=== PATIENT | male | born 1975 | race Caucasian/White ===

== ENCOUNTER 2021-07-04 12:39 | Inpatient (IN) | payer MEDICARE, OTHER ==
[~2021-07-04] VITALS: Ht 175.3 cm; Wt 83.7 kg
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
[2021-07-04] MEDS ORDERED: JANUVIA100 MG PO (13:02)
[2021-07-04] MEDS ORDERED: METFORMIN HCL500 M1 PO (13:02)
[2021-07-04] MEDS ORDERED: LISINOPRIL10 MG PO (13:02)
[2021-07-04] MEDS ORDERED: FENOFIBRATE145 MG PO (13:03)
[2021-07-04] MEDS ORDERED: ROSUVASTATIN CA40 MG PO (13:03)
--- NOTE | 2021-07-04 19:05 | NUR ---
PATIENT ARRIVED VIA STRETCHER FROM ER INTO ROOM #117. SURGICAL WIPE DOWN DONE BY THIS RN. VACCINE/VS/WEIGHT/VALUABLES/QUICK ADMIT/VASCULAR ACCESS CHARTING DONE BY THIS RN. LR HANGING ON EXTENSION TUBING TO GO TO OR. REPORT GIVEN TO EVELYN BECK FOR SHIFT CHANGE. PATIENT'S MOTHER IN ROOM TO GIVE PATIENT HX. CALL LIGHT IN REACH.
--- NOTE | 2021-07-04 19:30 | NUR ---
REPORT RECEIVED FROM DAY SHIFT RN. PT ALERT AND ORIENTED. DENIES PAIN OR NAUSEA. MD AND ANESTHESIA AT BED SIDE TO DISCUSS PROCEDURE. SURGICAL CONSENT SIGNED BY PT AND MOTHER. ADMISSION ASSESSMENT COMPLETE. PT DENIES QUESTIONS OR CONCERNS. WHITE BOARD UPDATED. CALL LIGHT IN REACH.
--- NOTE | 2021-07-04 20:00 | NUR ---
PT OFF FLOOR WITH PACU NURSE VIA BED TO OR.
--- NOTE | 2021-07-05 00:47 | NUR ---
07/05/21 0047 Samreen Mccray 2304 PT ARRIVED IN PACU NON RESPONSIVE TO NOXIOUS STIMULI WITH OPA IN PLACE. 2310 BLOOD SUGAR 92. ANESTHESIA AWARE WITH NO NEW ORDERS. 2316 PT REACTIVE. OPA REMOVED. 2330 PT TALKING AND ASKING MANY QUESTIONS. ALL QUESTIONS ANSWERED MULTIPLE TIMES. 2345 DR AT BEDSIDE TALKING WITH PT. G-TUBE ATTACHED TO RUTHERFORD BAG PER DR ORDERS. 0000 C/O ABD PAIN. UNABLE TO RATE. FENTANYL 50MCG GIVEN IVP. 0010 PT STATES "I FEEL ALOT BETTER." DECLINED MORE PAIN MEDICATION AT THIS TIME. 0020 TO ROOM 117. REPORT GIVEN TO RN. BED PLUGGED. 0025 PT C/O ABD PAIN. 0029 FENTANYL 50MCG GIVEN IVP FOR ABD PAIN. PT UNABLE TO RATE AT THIS TIME. 0040 PT SLEEPY. STATES "MY PAIN IS BETTER." ENCOURAGED PT TO GET SOME REST. PT'S RN AT BEDSIDE.
--- NOTE | 2021-07-05 00:48 | NUR ---
PT TO FLOOR FROM PACU AT 0020. REPORT RECEIVED FROM PACU NURSE. PT AWAKE AND REPORTS FEELING DISORIENTED FROM ANESTHESIA. ORIENTATION PROVIDED. BED ALARM PLACED. POST OP VS WNL. IVF INFUSING WNL. ASSESSMENT COMPLETE. MIDLINE ABD DRESSING INTACT WITH SCANT AMOUNT SEROSANG DRAINAGE. G-TUBE LEFT UPPER ABD TO GRAVITY. NO DRAINAGE NOTED. SAHARA TO RLQ WITH SEROSANG DRAINAGE. ABD MODERATELY DISTENDED AND FIRM. BOWEL TONES INACTIVE AT THIS TIME. RUTHERFORD PATENT WITH YELLOW URINE. PT DENIES NAUSEA. REPORTS ABD PAIN. PACU NURSE ADMINISTERED PRN FOR PAIN. SCD'S IN PLACE. WARM BLANKET PROVIDED. CALL LIGHT IN REACH.
--- NOTE | 2021-07-05 01:37 | NUR ---
PT RESTING WITH EYES CLOSED UPON ENTERING ROOM. AWAKES EASILY. POST OP VS COMPLETE. WNL. PT DENIES PAIN OR NAUSEA. NO FURTHER NEEDS.
--- NOTE | 2021-07-05 03:23 | NUR ---
CALL LIGHT ANSWERED. 2 WARM BLANKET PROVIDED. ROOM TEMP ADJUSTED UP TO 76.
--- NOTE | 2021-07-05 03:48 | NUR ---
POST OP VS COMPLETE. PT DENIES PAIN OR NAUSEA. ICE WATER PROVIDED. NO FURTHER NEEDS. CALL LIGHT IN REACH.
--- NOTE | 2021-07-05 05:40 | NUR ---
MD NOTIFIED OF CONSULT VIA TELEPHONE, SURGEON HAS NOTIFIED MD.
--- NOTE | 2021-07-05 05:53 | NUR ---
CALL LIGHT ANSWERED. PT REPORTS 12/05 ABD PAIN. PRN FOR PAIN ADMIN PER EMAR. IV ABX INFUSING WNL. PT DENIES NAUSEA. G-TUBE AND CLARY DRAIN EMPTIED AND RECORDED. RUTHERFORD PATENT WITH QS CONCENTRATED URINE. VS AND I&O COMPLETE. PT TEMP ELEVATED. EXTRA BLANKETS REMOVED. ENCOURAGED PT TO COUGH AND DEEP BREATHE. ABD SPLINT PROVIDED. JELLO AND FRESH WATER PROVIDED. NO FURTHER NEEDS. CALL LIGHT IN REACH.
--- NOTE | 2021-07-05 06:30 | NUR ---
CALL LIGHT ANSWERED. PT REPORTS ABD PAIN 12/05. PRN FOR PAIN ADMIN PER EMAR. IV ABX INFUSING WNL. ASSISTED TO REPOSITION IN BED. NO FURTHER NEEDS. CALL LIGHT IN REACH.
--- NOTE | 2021-07-05 07:30 | NUR ---
SHIFT REPORT RECEIVED BY THIS RN FROM EVELYN BECK. EVELYN WHIPPLE SHADOWING THIS RN FOR THE DAY. PATIENT RESTING QUIETLY IN KERLINE-FOWLERS POSITION IN BED, EYES CLOSED, RESPIRATIONS ARE REGULAR AND EVEN, CALL LIGHT IS IN REACH. NO CURRENT CARE NEEDS AT THIS TIME.
--- NOTE | 2021-07-05 09:45 | NUR ---
THIS RN IN TO SEE PATIENT. PATIENT DENIES PAIN AND NAUSEA AT THIS TIME. MINIMAL DRAINAGE FROM SAHARA. 150MLS GREEN AND SLUFF OUTPUT FROM G-TUBE. RUTHERFORD DRAINING QS FOR THE LAST 4HRS PER SURGEON PROTOCOL. IV INFUSING WNL AND BOTH IV'S FLUSH WELL. SCD'S ON AND RUNNING. BOWEL TONES HYPOACTIVE, ABD FIRM AND TENDER. VS STABLE ON ROOM AIR AT THIS ITME. PATIENT GIVEN 3 JELLOS AND A NEW GLASS OF ICE WATER. PATIENT DENIES ANY OTHER NEEDS AT THIS TIME. CALL LIHT IN REACH AND BED ALARM IS ON.
--- NOTE | 2021-07-05 12:30 | NUR ---
PATIENT CALLED AND SAYS HE WAS HAVING 10/10 ABD PAIN. PATIENT GIVEN 3MG SIVP MORPHINE AFTER 8MG SIVP ZOFRAN TO PREVENT NAUSEA FROM MORPHINE. PATIENT'S PAIN IS GETTING BETTER HE SAYS AND IS NOT NAUSEATED. ABD DRESSING REMAINS IN PLACE WITH NO ADDITIONAL DRAINAGE AND BOWEL TONES ARE HYPOACTIVE. NEW BAG OF LR HUNG AND RATE DECREASED TO 100MLS/HR. PATIENT GIVEN 4 DIFFERENT CLEAR BEVERAGES HE ASKED FOR AND BOTH WATER GLASSES REFILLED WITH ICE WATER. CALL LIGHT IS IN REACH AND PATIENT HS NO OTHER NEEDS AT THIS TIME. CALL LIGHT IN REACH AND BED ALARM IS ON.
--- NOTE | 2021-07-05 13:20 | NUR ---
THIS RN CHECKED IN WITH PATIENT AND HIS PAIN IS GONE AND HE HAS NO NAUSEA. PATIENT DENIES ANY OTHER CARE NEEDS AT THIS TIME. CALL LIGHT IS IN REACH.
--- NOTE | 2021-07-05 14:02 | NUR ---
UNABLE TO VISIT PT AT THIS TIME DUE TO PRECAUTIONS. WILL FOLLOW
--- NOTE | 2021-07-05 14:46 | NUR ---
PATIENT STILL DENIES PAIN AND NAUSEA. G-TUBE PUT OUT 800MLS OF FLUID AND PATIENT TOOK IN 850MLS PO. G-TUBE WORKING WELL. AFTERNOON ASSESSMENT COMPLETE. PATIENT DENIES SOB. MIDLEN ABD DRESSING REMAINS UNCHANGED, ABD STILL DISTENDED AND FIRM, WITH HYPOACTIVE BOWEL TONES. CALL LIGHT IS IN REACHA AND BED ALARM IS ON.
--- NOTE | 2021-07-05 15:00 | NUR ---
Spoke with pt and he states he lives in an apartment without steps. He lives in an apartment complex which mother manages. Pt states he has been disabled since 1997 with a TBI. Mother assist with household tasks, shopping, and transport. Pt is aware he has covid, does not believe he has symtoms, but nancy have a cough. Pt plans on dc to home when cleared medically. 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 He denies needs.
--- NOTE | 2021-07-05 16:02 | NUR ---
MED REC COMPLETE
--- NOTE | 2021-07-05 16:17 | NUR ---
PATIENT CALLED HAVING 8/10 ABD PAIN. 4MG SIVP MORPHINE GIVEN WELL IV TORADOL SIVP. PATIENT DENIES ANY OTHER CARE NEEDS AND DENIES NAUSEA. ICE WARTER GLASSES REFILLED. CALL LIGHT IN REACH AND BED ALARM IS ON.
--- NOTE | 2021-07-05 17:45 | NUR ---
PATIENT'S MOTHER JUST ARRIVED AND SITTING WITH PATIENT WHILE HE DRINKS HIS SUPPER. PATIENT 1PA TO THE BEDSIDE ARMCHAIR AND PATIENT TOLERATED THIS WELL AND DENIES PAIN AND NAUSEA ALTHOUGH HE DID FEEL A LITTLE DIZZY AT FIRST. PM ASSESSMENT COMPLETE. I+O AND VS ENTERED. ASSESSMENT BASICALLY UNCHANGED ALL SHIFT. PATIENT HAS A CHAIR ALARM ON AND CALL LIGHT IN REACH. FRESH GOWN PLACED ON PATIENT. PATIENT HAS NO OTHER CARE NEEDS AT THIS TIME.
--- NOTE | 2021-07-05 19:20 | NUR ---
REPORT RECEIVED FROM DAY SHIFT RN. PT SITTING IN RECLINER WITH EYES CLOSED. RESPIRATIONS EVEN. CHAIR ALARM IN PLACE. CALL LIGHT IN REACH.
--- NOTE | 2021-07-05 21:00 | NUR ---
CALL LIGHT ANSWERED. IV PUMP ALARMING. ISSUE RESOLVED. 2PA BACK TO BED. GAIT WEAK. VS AND I&O COMPLETE. RUTHERFORD PATENT WITH CONCENTRATED URINE. RUTHERFORD CARE DONE BY QUALITY COMPLIANCE CONSULTANT. MIDLINE ABD INCISION DRESSING INTACT WITH SHADOWING. BOWEL TONES HYPOACTIVE. ABD FIRM AND MILDLY DISTENDED. PT DENIES FLATUS. G-TUBE AND CLARY DRAIN EMPTIED AND RECORDED. PT DENIES NAUSEA. REPORTS 10/10 ABD PAIN. PRN FOR PAIN ADMIN PER EMAR. SCHEDULED MEDS ADMIN. ICE WATER AND JELLO PROVIDED. NO FURTHER NEEDS. CALL LIGHT IN REACH.
--- NOTE | 2021-07-05 22:13 | NUR ---
IV ABX INFUSING WNL. PT REPORTS PAIN IMPROVED. EXTRA BLANKET PROVIDED. NO FURTHER NEEDS. CALL LIGHT IN REACH.
--- NOTE | 2021-07-06 01:14 | NUR ---
IV PUMP ALARMING. NEW BAG IVF INFUSING WNL. VS OBTAINED. ELEVATED TEMP NOTED. PT REPORTS PAIN IS TOLERABLE, DOES NOT WANT PRN FOR PAIN AT THIS TIME. DENIES NAUSEA. NO FURTHER NEEDS.
--- NOTE | 2021-07-06 01:39 | NUR ---
CALL LIGHT ANSWERED. PT REPORTS ABD PAIN 10/05. PRN FOR PAIN ADMIN PER EMAR. IV PUMP ALARMING. PRIMARY TUBING CHANGED. IVF INFUSING WNL AT THIS TIME.
--- NOTE | 2021-07-06 04:07 | NUR ---
IV PUMP ALARMING. IN ROOM TO RESOLVE ISSUE. IVF INFUSING WNL. PT RATES ABD PAIN 10/05. PRN FOR PAIN ADMIN PER EMAR. ASSESSMENT COMPLETE. TEMP NOTED 99.1.
--- NOTE | 2021-07-06 05:05 | NUR ---
CALL LIGHT ANSWERED. PT REPORTS ABD PAIN 12/05. PRN FOR PAIN ADMIN PER EMAR. VS AND I&O OBTAINED. RUTHERFORD PATENT WITH QS TEA COLORED URINE. SAHARA WITH 10 ML SEROSANG DRAINAGE. G-TUBE WITH 225 ML GREEN DRAINAGE. PT DENIES NAUSEA. SCD'S IN PLACE.
--- NOTE | 2021-07-06 07:30 | NUR ---
THIS RN RECEIVED SHIFT REPORT FROM EVELYN BECK. PATIENT RESTING QUIETLY IN SEMI-FOWLERS POSITION IN BED, EYES CLOSED, RESPIRATIONS ARE REGULAR AND EVEN, CALL LIGHT IS IN REACH BED ALARM IS ON.
--- NOTE | 2021-07-06 09:06 | NUR ---
RADHAIS RN IN TO SEE PATIENT. AM ASSESSMENT COMPLETE. MEDS GIVEN. VS AND I+O CHARTED. BREAKFAST SERVED. PATIENT DENIES PAIN AND NAUSEA AT THIS TIME. WATER GLASSES ARE FULL. ABD LESS DISTENDED TODAY. SLIGHTLY MORE DRAINAGE ON INTACT ABD DRESSING FROM WHAT WAS THERE YESTERDAY. PATIENT APPEARS TO BE IN GOOD SPIRITS. PATIENT DENIES ANY CARE NEEDS AT THIS TIME. CALL LIGHT IN REACH AND BED ALARM IS ON.
--- NOTE | 2021-07-06 09:53 | NUR ---
PATIENT CALLED HAVING 8/10 ABD PAIN. 4MG SIVP MORPHINE GIVEN. PATIENT DENIED ANY OTHER CARE NEEDS AT THIS TIME. CALL LIGHT IN REACH AND BED ALARM IS ON.
--- NOTE | 2021-07-06 11:00 | NUR ---
THIS RN CHECKED IN WITH PATIENT AND HIS PAIN IS GONE AND PATIENT HAS NO OTHER CARE NEEDS AT THIS TIME. CALL LIGHT IN REACH AND BED ALARM IS ON.
--- NOTE | 2021-07-06 11:15 | NUR ---
IN PATIENT ROOM WITH THIS RN AND REMOVED PATIENT'S ABD DRESSINGS. TONIO ARE INTACT AND MIDLINE INCISION LOOKS GREAT AND IS WELL APPROXIMATED. GOING TO WRITE NEW ORDERS. CALL LIGHT IS IN REACH, BED ALARM IS ON, PHONE IN REACH. PATIENT HAS NO OTHER CARE NEEDS AT THIS TIME.
--- NOTE | 2021-07-06 11:50 | NUR ---
THIS RN ASSISTED PATIENT UP TO THE CHAIR AND 1PA. PATIENT'S GOWN CHANGED AND PATIENT WASHED UP WITH WARM WET CLOTHES AND SHOWERLESS HAIR CAP. PATIENT REQUESTING MORE PAIN MEDS NOW FOR ABD PAIN 10/05. THIS RN WILL BE BACK WITH THAT MED. ARMEN WALKER COMING IN TO CHANGED BED AND GET BLOOD SUGAR. CALL LIGHT AND PHONE IN REACH. CHAIR ALARM IS ON.
--- NOTE | 2021-07-06 12:16 | NUR ---
PT GETTING PATIENT UP TO THE BEDSIDE ARMCHAIR FOR LUNCH. PATIENT HAS NO CARE NEEDS FROM THIS RN AT THIS TIME. CALL LIGHT IN REACH.
--- NOTE | 2021-07-06 12:34 | NUR ---
PATIENT GIVEN 4MG SIVP MORPHINE FOR ABD PAIN 10/05. PATIENT HAS NO OTHER CARE NEEDS AT THIS TIME. PATIENT HAS FINISHED ALL HIS LUNCH. THIS RN WILL BRING PATIENT SOME MORE JELLO WHEN I COME BACK. PATIENT'S CALL LIGHT AND PHONE ARE IN REACH. CHAIR ALARM IS ON.
--- NOTE | 2021-07-06 13:25 | NUR ---
PATIENT GIVEN 2 MORE JELLOS HE REQUESTED AND BOTH ICE WATER GLASSES DUMPED AND REFILLED. PATIENT HAS NOT DRANK MUCH WATER, ONLY JUICE,BROTHAND JELLO MAINLY. ASSESSMENT COMPLETE. I+O AND VS STABLE AND CHARTED. PATIENT DENIES ANY PAIN OR NAUSEA AT THIS TIME. CHAIR ALARM IS ON, CALL LIGHT IN REACH, AND PATIENT HAS NO OTHER CARE NEEDS FROM THIS RN AT THIS TIME.
--- NOTE | 2021-07-06 14:13 | NUR ---
PT IS ON PRECAUTIONS, WILL FOLLOW ABLE
--- NOTE | 2021-07-06 15:00 | NUR ---
Pt sitting up in chair. Denies needs, wants to go back to bed. pts nurse notified.
--- NOTE | 2021-07-06 15:25 | NUR ---
PATIENT CALLED WITH 8/10 ABD PAIN AGAIN. HE HAS ONLY REPORT 0/10 OR 8/10 ALL DAY. 4MG SIVP MORPHINE GIVEN. PATIENT ALSO CALLED FOR A TOOTH BRUSH AND THIS RN ASSISTED PATIENT IN BRUSHING HIS TEETH. PATIENT IS TIRED OF BEING UP IN THE CHAIR AND THIS RN 1PA PATIENT BACK TO BED, SCD'S ON, WARM BLANKET GIVEN, BED ALARM ON, IN SEMI-FOWLERS POSITION. PATIENT TOLERATED THIS MOVE WELL. NO BLEEDING NOTED FROM NOW OPEN TO AIR MIDLEINE INCISION AND TONIO INTACT. PATIENT DENIES ANY OTHER CARE NEEDS AT THIS TIME AND SAYS HE WANTS TO SLEEP. CALL STAR BRADFORD.
--- NOTE | 2021-07-06 16:24 | NUR ---
THIS RN IN TO ASSIST PATIENT IN CALLING HIS MOTHER WHICH I DID. PATIENT DENIES PAIN AT THIS TIME. PATIENT TALKING WITH HIS MOM. CALL LIGHT IN REACH AND BED ALARM ON. PATIENT REMAINS IN COVID PRECAUTIONS.
--- NOTE | 2021-07-06 18:28 | NUR ---
PATIENT CALLED REQUESTING PAIN MEDICATION FOR 8/10 SHARP ABD PAIN. 4MG SIVP MORPHINE GIVEN. PATIENT DENIES ANY OTHER CARE NEEDS AT THIS TIME AND IS GOING TO TRY AND TAKE A NAP. PATIENT'S CALL LIGHT IS IN REACH AND HIS BED ALARM IS ON.
--- NOTE | 2021-07-06 19:10 | NUR ---
SHIFT REPORT RECEIVED FROM DAYSHIFT EVELYN CHADWICK AT BEDSIDE. pt RESTING IN BED, WITH EYES CLOSED. RR EVEN AND UNLABORED, NO DISTRESS NOTED. CALL LIGHT IN REACH.
--- NOTE | 2021-07-06 21:30 | NUR ---
ASSESSMENT COMPLETE, SCHEDULED MEDS GIVEN (SEE EMAR). pt REPORTS 10/10 PAIN, PRN PAIN MEDICATION GIVEN. IV SITE TO RIGHT HAND REDRESSED, IV SITES X2 WNL. pt DENIES NAUSEA AND ALSO DENIES PASSING GAS. BOWEL TONES HYPOACTIVE. ABD INCISION WNL, TONIO INTACT AND SITE WELL APPROXIMATED. SCANT OUTPUT TO RLQ SAHARA DRAIN, SEROUS IN COLOR. NO FURTHER NEEDS, CALL LIGHT IN REACH.
--- NOTE | 2021-07-06 21:35 | NUR ---
V/S AND I&O'S COMPLETED AND RECORDED. RUTHERFORD CARE DONE. ICE WATER REFILLED. BLOOD SUGAR CHECK DONE.
--- NOTE | 2021-07-06 23:20 | NUR ---
PRN PAIN MEDICATION GIVEN, SEE EMAR. UPON ENTERING ROOM, PT WAS AWAKE AND LAUGHING AT TV. REPORTS PAIN 8/10, IV SITE WNL. FLUIDS AND IV ABX INFUSING DIRECTED. NO FURTHER NEEDS, CALL LIGHT IN REACH.
--- NOTE | 2021-07-07 00:41 | NUR ---
PT CALLED FOR WARM BLANKET. TURNED ROOM HEAT UP TO 71, COMPLAINED ROOM WAS COLD. CHECKED IV RIGHT HAND, PATENT. NO OTHER NEEDS AT THIS TIME.
--- NOTE | 2021-07-07 01:16 | NUR ---
pt RESTING QUIETLY IN BED WITH EYES CLOSED, RR EVEN AND UNLABORED. NO DISTRESS NOTED. CALL LIGHT IN REACH.
--- NOTE | 2021-07-07 02:15 | NUR ---
ROUNDED ON pt, pt AWOKE UPON ENTERING ROOM. IV SITE WNL, FLUIDS INFUSING DIRECTED VIA RIGHT HAND. pt DID NOT REPORT ANY KIND OF PAIN WHILE IN ROOM NOR DID HE REQUEST PAIN OR NAUSEA MEDICATION, WILL MONITOR. NO CAHNGE TO ABD INCISION, G-TUBE, OR CLARY DRAIN. RUTHERFORD REMAINS PATENT AND DRAINING WNL. CLEAR LIQUID SNACK PROVIDED, CALL LIGHT IN REACH. WILL MONITOR FOR CHANGES.
--- NOTE | 2021-07-07 03:10 | NUR ---
IV PUMP ALARMING, ISSUE RESOLVED. NO NEEDS OR CONCERNS VERBALIZED BY pt. CALL LIGHT REMAINS IN REACH WITH OTHER PERSONAL BELONGINGS. WILL MONITOR FOR CHANGES.
--- NOTE | 2021-07-07 05:29 | NUR ---
VSS AND I&O'S COMPLETE. pt REPORTS 8/10 PAIN, PRN PAIN MEDICATION GIVEN (SEE EMAR). IV SITES X2 WNL, FLUIDS INFUSING DIRECTED VIA RIGHT HAND. FRESH WATER PROVIDED, CALL LIGHT IN REACH. NO FURTHER NEEDS OR CONCERNS VERBALIZED AT THIS TIME. WILL MONITOR.
--- NOTE | 2021-07-07 06:53 | NUR ---
SCHEDULED IV ABX INFUSING DIRECTED, IV SITE WNL. BROTH AND SUGAR FREE JELLO PROVIDED PER pT REQUEST. NO FURTHER NEEDS, CALL RODNEY BRADFORD.
--- NOTE | 2021-07-07 10:05 | NUR ---
MORNING ASSESSMENT COMPLETE. PT AWAKE AND ALERT, HAVING CLEAR LIQUID BREAKFAST. DENIES PAIN OR FURTHER NEEDS AT THIS TIME. CALL LIGTH WITHIN REACH.
--- NOTE | 2021-07-07 11:45 | NUR ---
No change in plan for pt to dc to apartment near his mom when medically cleared for dc. Mom will cont. to assist pt as needed.
--- NOTE | 2021-07-07 12:32 | NUR ---
PT RESTING IN BED, AWAKE AND ALERT, LUNCH AT BEDSIDE. DENIES NEEDS AT THIS TIME. CALL LIGHT WITHIN REACH.
--- NOTE | 2021-07-07 16:14 | NUR ---
PT UP TO CHAIR FROM BED, TOLERATED AMBULATION WELL. DENIES FURHTER NEEDS AT THIS TIME. NHAN LIGHT WITHIN REACH.
--- NOTE | 2021-07-07 18:18 | NUR ---
PT SITTING IN CHAIR, HAVING DINNER. DENIES NEEDS AT THIS TIME. CALL LIGHT WITHIN REACH.
--- NOTE | 2021-07-07 21:00 | NUR ---
PAIN MED GIVEN FOR C/O OF PAIN TO SURGICAL SITE.
--- NOTE | 2021-07-07 22:30 | NUR ---
CLEAR ENSURE GIVEN. DENIES ANY OTHER NEEDS. CALL LIGHT WITHIN REACH.
--- NOTE | 2021-07-08 02:05 | NUR ---
PT CALLED FOR WARM BLANKET, HE DENIES FURTHER NEEDS. CALL LIGHT IS CLOSE.
--- NOTE | 2021-07-08 04:10 | NUR ---
ASSISTED PT UP INTO CHAIR. NEEDS ENCOURAGEMENT TO MOVE. CALL LIGHT WITHIN REACH.
--- NOTE | 2021-07-08 06:29 | NUR ---
REMAINS IN THE CHAIR. HAS BRUSHED TEETH. MEDICATED EFFECTIVELY FOR INCISIONAL PAIN. CALL LIGHT WITHIN REACH
--- NOTE | 2021-07-08 06:45 | NUR ---
PT ASSISTED TO BED, HEAVY 1PA PIVOT FROM THE CHAIR, NO FURTHER NEEDS
--- NOTE | 2021-07-08 06:51 | NUR ---
TCDB AND IS USE ENCOURAGED. PT USED IS WHILE SITTING UP IN CHAIR WHICH PROMPTED A GOOD COUGH.
--- NOTE | 2021-07-08 08:39 | NUR ---
PT REFUSED TO GET OOB FOR MEAL. STATES HE DOES NOT FEEL WELL THIS MORNING, WILL GET UP FOR LUNCH.
--- NOTE | 2021-07-08 09:16 | NUR ---
MORNING ASSESSMENT COMPLETE. PT UP TO CHAIR FOR BREAKFAST. EDUCATED ON IMPORTANCE OF AMBULATION, AND USE OF IS. DENIES FURTHER NEEDS AT THIS TIME. CALL LIGHT WITHIN REACH.
--- NOTE | 2021-07-08 09:47 | NUR ---
PT O2 SAT 89-90%, INSTRUCTED ON COUGH AND DEEP BREATHING WELL IS USE. O2 SAT REMAINED 89%. PLACED ONN 1LPM O2 VIA NC. O2 SAT INCREASED TO 93%.
--- NOTE | 2021-07-08 12:15 | NUR ---
PT RESTING COMFORTABLY IN CHAIR. INSTRUCTED ON IS USE X5. DENIES NEEDS AT THIS TIME. CALL LIGTH WITHIN REACH.
--- NOTE | 2021-07-08 13:48 | NUR ---
PT. USED CALL LIGHT APPROPRIATELY FOR ASSISTANCE WITH BEEPING IV PUMP. RIGHT HAND IV WAS LEAKING AND PAINFUL. REMOVED WITH CATH INTACT AND IV EDUCATION PROVIDED. PT. PT. BEGAN MAKING INAPPROPRIATE COMMENTS TO THIS NURSE SUCH "DO YOU WAX YOUR BIKINI AREA?" AND "DO YOU DO ANYTHING SPECIAL FOR YOUR MAN?" PT TOLD THAT HIS COMMENTS WERE INAPPROPRIATE AND NOT TOLERATED. HE APOLOGIZED. PT. ASSISTED BACK TO BED. PT. ATTEMPTED TO HOLD ON TO TABLE AND THIS NURSE WHILE AMBULATING. PT. WOULD NOT STAND UP RIGHT OR FOLLOW DIRECTION. ASSISTED WITH GETTING INTO BED. AND GIVEN CALL LIGHT. PT. RATED HIS PAIN TOLERABLE ONCE HE WAS RESTING.
--- NOTE | 2021-07-08 14:06 | NUR ---
No change in plan for dc. Again attempted to call pts mom to check if she feels they have further needs. I am unable to contact. Message left.
--- NOTE | 2021-07-08 17:19 | NUR ---
PT C/O ABD PAIN 10/05, MORPHINE GIVEN. INSTRUCTED PT ON IS USE X5. PT UP TO CHAIR FOR DINNER. EDUCATED ON THE IMPORTANCE OF AMBULATION. DENIES FURTHER NEEDS AT THIS TIME. CALL LIGHT WITHIN REACH.
--- NOTE | 2021-07-08 19:10 | NUR ---
SHIFT REPORT RECEIVED FROM DAYSHIFT RN HOLGER AND MARILYNN AT BEDSIDE. pt AWAKE AND RESTING IN CHAIR. ON 1NC, RR EVEN AND UNLABORED. NO DISTRESS NOTED, CALL LIGHT IN REACH.
--- NOTE | 2021-07-08 19:39 | NUR ---
pt REPORTING SOME SOB AT SHIFT CHANGE, NO DISTRESS NOTED. DAYSHIFT RN HOLGER RECENTLY IN ROOM TO ASSIST pt WITH IV IV POLE ALARMING. DR WALLACE CONSULTING AND MADE AWARE, TO PUT IN ORDERS.
--- NOTE | 2021-07-08 21:30 | NUR ---
ASSESSMENT COMPLETE, SCHEDULED MEDS GIVEN ALONG WITH PRN PAIN MEDICATION AND PRN BREATHING TREATMENT. NO DISTRESS NOTED, pt ON 1LNC. RR EVEN AND UNLABORED. LUNG SOUNDS CLEAR, DIMINISHED IN LOWER LOBES WITH SOME COURSENESS. SPO2 LOW 90'S. pt EDUCATED ON USE OF IS AND DEMONSTRATED USE AND ENCOURAGED TO COUGH AND DEEP BREATH, pt VERBALIZED UNDERSTANDING. IV SITE TO RIGHT AC, DC'D CATHETER TIP INTACT. SITE LEAKING WHEN FLUSHED. MANUFACTURING SUPPORT ENGINEER CURTIS TO ATTEMPT NEW IV. FLUIDS ON STANDBY AT THIS TIME. ABD INCISION WNL, TONIO NOTED AND SITE WELL APPROXIMATED. G-TUBE TO DRAINAGE, NEW GUAZE IN PLACE. RUTHERFORD PATENT, CATH CARE RECENTLY COMPELTED BY ARMEN CROWE. pt REPORTS 10/10 PAIN, SEE EMAR FOR MEDS GIVEN. SCD'S ALSO ON.
--- NOTE | 2021-07-08 22:30 | NUR ---
RT ABENA IN ROOM AND CONNECTED pt TO CPOX pt IS COVID POSTIVE, pt TITRATED TO 3LNC, SPO2 WNL IS HR. SPO2 UPPER 80'S WHEN ON 1LNC. NO DISTRESS NOTED.
--- NOTE | 2021-07-08 22:42 | NUR ---
IN ROOM TO START IV AND WAS UNABLE TO GET IV ACCESS. PT REPORTS BEING A HARD IV START. PT'S O2 AT 87% ON 1LNC, CPOX NOW IN PLACE AND PT ON 3LNC AND INCREASED TO 91%. PT IS UPSET THAT DOOR KEEPS SLAMMING WHEN PEOPLE COME IN AND OUT, EXPLAINED NEG PRESSURE ROOM SITUATION AND PT STILL ANNOYED BUY DOOR. ALSO THE BEEPING IV FROM BENDING HIS ARM. OFFERED TO MOVE PT AND HE STATES IT WILL NOT MAKE A DIFFERENCE. PT DENIES FURTHER NEEDS AT THIS TIME. SIGN PLACED ON DOOR TO TRY TO CLOSE IT SOFTLY.
--- NOTE | 2021-07-08 22:50 | NUR ---
ACOUSTICAL TILE DRILL PRESS OPERATOR CURTIS UNABLE TO START NEW IV, ARBORIST CLIMBER KATLYN TO START NEW IV.
--- NOTE | 2021-07-08 23:15 | NUR ---
NEW IV IN PLACE, 20G IN RIGHT HAND. pt DENIES PAIN WHEN FLUSHED. IV ABX HUNG AND IV FLUIDS RESUMED AT THIS TIME, SEE EMAR. pt AWAKE AND RESTING IN BED WATCHING TV, IN GOOD SPIRITS. CALL LIGHT IN REACH.
--- NOTE | 2021-07-08 23:47 | NUR ---
IN TO FIX spo2 SENSOR, THEN PROVIDED PT A JELLO, NO FURTHER NEEDS
--- NOTE | 2021-07-09 00:05 | NUR ---
ROUNDED ON pt, pt AWAKE AND RESTING IN BED. DENIES NEEDS OR CONCERNS, REMAINS ON 3LNC, CPOX IN PLACE. SPO2 92-93%, HR WNL. CALL LIGHT IN REACH.
--- NOTE | 2021-07-09 00:55 | NUR ---
PT ASKING FOR ICE WATER, PT IS CHATTY, NO FURTHER NEEDS AT THIS TIME
--- NOTE | 2021-07-09 02:01 | NUR ---
CALL LIGHT ANSWERED, pt REPORTS 10/10 PAIN. UPON ENTERING ROOM, pt WAS AWAKE AND WATCHING TV. NO DISTRESS OR CRYING NOTED. PRN PAIN MEDICATION GIVEN, SEE EMAR. pt DENEIS NAUSEA. IV SITE WNL, FLUSHES EASILY. ASSESSMENT COMPLETE, NO ACUTE CHANGES. FRESH ICE WATER PROVIDED, CALL LIGHT IN REACH.
--- NOTE | 2021-07-09 03:46 | NUR ---
IV PUMP ALARMING, ISSUE RESOLVED. NO NEEDS OR CONCERNS VERBALIZED. CALL LIGHT IN REACH. IV SITE WNL, FLUIDS INFUSING DIRECTRED. SPO2 LOW TO MID 90'S ON 3LNC.
--- NOTE | 2021-07-09 05:41 | NUR ---
pt RESTING IN BED WITH 3LNC IN PLACE, EYES CLOSED AND RR EVEN AND UNLABORED. CPOS REMAINS IN PLACE, SPO2 94%, HR 66. NO DISTRESS NOTED. CALL LIGHT IN REACH.
--- NOTE | 2021-07-09 06:58 | NUR ---
IN ROOM TO ADMINISTER SCHEDULED IV ABX, IV SITE REMAINS UNCHANGES, SITE WNL. FLUSHES EASILY. pt SWEATY, NO FEVER NOTED. VSS. NEW GOWN AND BED SHEET PROVIDED, EXCESS BLANKETS REMOVED AND ROOM TEMP DECREASED. pt REPORTS "NOT FEELING GOOD" AND RATES PAIN 10/10, WHILE GIVING PAIN MEDICATION pt REMAISN VERY TLKATIVE WITH STAFF AND IS SELF SINGING THEM SONG TO PEPTOBISMOL. PRN PAIN MEDICATION GIVEN, pt DEMONSRATED USE OF IS, OCCAS DRY COUGH NOTED. 3LNC REMAINS IN PLACE. UPON ENTERING ROOM TO COMPLETE VS, pt WAS FOUND BY ARMEN BASILIO OFF OF FACE, SPO2 90-91%. HOB ELEVATED, CALL LIGHT IN REACH. NO FURTHER NEEDS. WILL MONITOR.
--- NOTE | 2021-07-09 10:00 | NUR ---
MORNING ASSESSMENT COMPLETE. PT C/0 11/05 ABD PAIN, 4MG MORPHINE GIVEN. PT DIAPHORETIC, VSS. PT ON 3L O2 VIA NC, O2 SAT 97%. G-TUBE CLAMPED. 200 MLS CLEAR LIQUIDS PROVIDED. PT UP WITH WALKER TO CHAIR, FAIRLY TOLERATED. INSTRUCTED ON IS USE x6. EDUCATED PT ON IMPORTANCE OF AMBULATION AND COUGH AND DEEP BREATHING. PT VERBALIZED UNDERSTANDING. DENIES FURHTER NEEDS AT THIS TIME. CALL LIGHT WITHIN REACH.
--- NOTE | 2021-07-09 12:08 | NUR ---
PT AMBULATED WITH WALKER IN ROOM FOR 10 MINUTE. TOLERATED WELL. O2 SAT 96% WHILE AMBULTING ON 2LPM O2 VIA NC. PT BACK TO CHAIR FOR LUNCH. DENIES NEEDS AT THIS TIME. CALL LIGTH WITHIN REACH.
--- NOTE | 2021-07-09 13:13 | NUR ---
PT C/O 11/05 ABD PAIN, MORPHINE GIVEN. DENIES FURTHER NEEDS AT THIS TIME. CALL LIGHT WITHIN REACH.
--- NOTE | 2021-07-09 14:47 | NUR ---
PT AMBULATED ACROSS FROM CHAIR AND BACK AND THEN TO BED. INSTRUCTED ON IS USE x6. PT DENIES FURTHER NEEDS AT THIS TIME. CALL LIGHT WITHIN REACH.
--- NOTE | 2021-07-09 16:03 | NUR ---
PT RESTING QUIETLY IN BED WITH EYES CLOSED, RESPIRATIONS EVEN AND UNLABORED. PT TO ROOM AIR, SATS 94%.
--- NOTE | 2021-07-09 16:12 | PATH ---
[facility] [address], [place] [address] Signed SPECIMEN(S): A ABDOMINAL PRODUCTS OF DEBRIDEMENT SPECIMEN(S): B FECALITH SPECIMEN(S): C PAUL-OSSIFICATION OF XIPHOID PROCESS SPECIMEN(S): D APPENDIX SPECIMEN(S): E VENTRICULOPERITONEAL SHUNT CONCRETION SPECIMEN SOURCE: A. ABDOMINAL PRODUCTS OF DEBRIDEMENT B. FECALITH C. PAUL-OSSIFICATION OF XIPHOID PROCESS D. APPENDIX E. VENTRICULOPERITONEAL SHUNT CONCRETION CLINICAL HISTORY: Intra-abdominal abscesses, COVID illness. FINAL PATHOLOGIC DIAGNOSIS: A. Products of debridement, abdominal abscess: - Fibrinopurulent material. B. Fecalith, abdominal abscess, excision: - Fecal material. C. Designated "paul-ossification of xiphoid process, excision: - Viable bone with trilineage hematopoiesis. D. Appendix, appendectomy: - Fragmented appendix with acute appendicitis and features consistent with perforation. - Hyperplastic polyp. E. Ventricular peritoneal shunt concretion, excision: - Sclerotic connective tissue with pigment, surrounded by acute inflammation. NAL:cml:C2NR MICROSCOPIC EXAMINATION: Histologic sections of all submitted blocks are examined by light microscopy. These findings, together with the gross examination, support the pathologic diagnosis. GROSS DESCRIPTION: Five specimens are received in five containers, labeled "RI." A. The specimen, labeled "RI, A," and designated on the requisition "products of debridement, abdominal abscess," is received in formalin and consists of a portion of pink-barajas, soft to friable tissue PATIENT NAME: AWAIS KWONG PATHOLOGY DATE OF : 75 REPORT #: [id number] PHYSICIAN: TEAGAN MOSER PCP: CAITLIN HUANG MD REPORT IS CONFIDENTIAL AND NOT TO BE RELEASED WITHOUT AUTHORIZATION [facility] [address], [place] [address] Signed (6.5 x 4.5 x 1.8 cm in aggregate). The tissue is sectioned to reveal a white-barajas soft cut surface. Tool Maker Bench section submitted in cassette (A1). B. The specimen, labeled "RI, B," and designated on the requisition "fecalith, abdominal abscess," is received in formalin and consists of three brown-barajas fecaliths (0.5 x 0.6 and 1.1 cm in greatest dimension). Each piece is sectioned to reveal a brown-barajas cut surface. Tool Maker Bench sections are submitted in cassette (B1).. C. The specimen, labeled "RI, C," and designated on the requisition "paul-ossification of xiphoid process," is received in formalin and consists of a segment of bone with attached nrjs-[id number]-ska soft tissue (7.2 x 1.2 x 1.8 cm). The specimen is inked blue and sectioned to reveal pink-barajas to hemorrhagic, soft and calcified cut surfaces. Tool Maker Bench sections are submitted in cassettes (C1-C3) following decalcification in Decal Stat. D. The specimen, labeled "RI, D," and designated on the requisition "appendix," is received in formalin and consists of Specimen: Two markedly fragmented, irregularly shaped pieces of appendix. Dimensions: 3.5 x 3.2 x 1.4 cm and 4.2 x 2.9 x 2.8 cm. Serosa: Red-brown with adherent white-barajas exudate. Disruption: Both pieces are markedly disrupted. Inking: Grossly disrupted areas are inked blue. Mucosa: [place]-barajas to hemorrhagic. Fecalith: Not grossly identified. Additional: The staple line resection margin is grossly identifiable. Tool Maker Bench sections including the tip, bisected, are submitted in cassettes (D1-D2). E. The specimen, labeled "RI, E," and designated on the requisition "ventricular peritoneal shunt concretion," is received in formalin and consists of a fragment of white to brown-barajas tissue (0.5 cm in greatest dimension). The specimen is submitted entirely in cassette (E1). AC (under the direct supervision of a pathologist) The Gross Description was prepared using a voice recognition system. The report was reviewed for accuracy; however, sound-alike word errors, addition and/or deletions may occur. If there is any question about this report, please contact Client Services. PERFORMING LABORATORY: The technical component was [place] [address] (CLIA# [id number]). [facility] PATIENT NAME: AWAIS KWONG PATHOLOGY DATE OF : 75 REPORT #: [id number] PHYSICIAN: TEAGAN PATHOLOGY PCP: CAITLIN HUANG MD REPORT IS CONFIDENTIAL AND NOT TO BE RELEASED WITHOUT AUTHORIZATION [facility] [address], [place] [address] Signed [place], [address] [place] [address] (CLIA# [id number]). Diagnostician: Christa Barnes MD Pathologist Electronically Signed 07/09/2021 Copies: ~ PATIENT NAME: [facility] DATE OF : 75 REPORT #: [id number] PHYSICIAN: TEAGAN PATHOLOGY PCP: CAITLIN HUANG MD REPORT IS CONFIDENTIAL AND NOT TO BE RELEASED WITHOUT AUTHORIZATION
--- NOTE | 2021-07-09 19:08 | NUR ---
SHIFT REPORT RECEIVED FROM DAYSHIFT RN HOLGER AND MARILYNN, pt AWAKE AND RESTING IN BED WATCHING TV. ON RA, RR EVEN AND UNLABORED. NO DISTRESS NOTED. IV FLUIDS INFUSING. NO NEEDS OR CONCERNS VERBALIZED, CALL LIGHT IN REACH.
--- NOTE | 2021-07-09 20:34 | NUR ---
PT CALLED, STATED HE HAD PASSED GAS, SO GAS PAINS WERE GONE, BUT HE WILL NEED HIS PAIN MEDICATION. PRIMARY RN AWARE.
--- NOTE | 2021-07-09 20:59 | NUR ---
ASSESSMENT COMPLETE, pt REPORTS 6/10 PAIN. PRN PAIN AND NAUSEA MEDICATION BOTH GIVEN, SEE EMAR. IV SITE WNL, FLSUHES ESILY WITH BRISK BLOOD RETURN. ABD SOFT, TENDERNESS NOTED WITH PALPATE IN UPPER QUADRANTS. CMS INTACT, pt DENEIS NUMBNESS AND TINGLING. VSS AND I&O'S COMPLETE. NO FURTHER NEEDS, CALL LIGHT IN REACH.
--- NOTE | 2021-07-09 21:30 | NUR ---
IN ROOM TO COMPLETE ASSESSMENT, pt RESTING QUIETLY IN BED WITH EYES CLOSED, ON RA. RR EVEN AND UNLABORED, NO DISTRESS NOTED. pt REPORTS INCREASED PAIN ONCE AWAKE, PRN PAIN MEDICATION GIVEN WITH SCHEDULED EVENING MEDS (SEE EMAR). IV SITE WNL, FLSUHES EASILY. pT DENIES PAIN WHEN FLUSHED AND STATES, "NO IT DOESN'T HURT...IS IT SUPPOSE TO?". pt EDUCATED ON IV MEDICATIONS AND IV SITE/CARE, pt VERBALIZED UNDERSTANDING. IV ABX AND IV FLUIDS INFUSING DIRECTED. G-TUBE REMAINS CLAMPED, FLUSHED WITH APPROX 40MLS TAP WATER. pt DENEIS NAUSEA, BOWEL TONES HYPOACTIVE TO ACTIVE. MOD ABD DISTENSION REMAINS NOTED, NO CHANGE BUT WILL CONTINUE TO MONITOR. MIDLINE INCISION WELL APPROXIMATED, TONIO NOTED. 10MLS OUTPUT NOTED TO SAHARA DRAIN, SEROUS IN COLOR. [place] PATENT, VOIDING QS URINE. SCD'S IN PLACE. pt DEMONSTRATED USE OF IS. pt WISHES TO GO BACK TO SLEEP AND REST, NO FURTHER NEEDS. CALL LIGHT IN REACH.
--- NOTE | 2021-07-09 23:38 | NUR ---
ROUNDED ON pt, pt REQUESTING CLEAR ENSURE, SCIENCE EDITOR AMRITA TO PROVIDE. NO FURHTER NEEDS OR CONCERNS. CALL LIGHT IN REACH.
--- NOTE | 2021-07-10 | NUR ---
IN TO CHANGE TELE BATTERY, CATH CARE DONE, AMADOR POST
--- NOTE | 2021-07-10 00:38 | NUR ---
ROUNDED ON pt, pt AWAKE AND RESTING ON RA. RR EVEN AND UNLABORED, NO DISTRESS NOTED. pt REPORTS SOME ABD DISCOMFORT R/T GAS PAIN, WILL MONITOR. OFFERED TO AMBULATE W/ pt IN ROOM TO HELP PAS GAS, pt REFUSED AT THIS TIME, STATES, "NO, I'M OKAY". NO FURTHER NEEDS OR CONCERNS, CALL LIGHT IN REACH. WILL CONTINUE TO MONITOR. CPOX IN PLACE, SPO2 93%.
--- NOTE | 2021-07-10 02:00 | NUR ---
CALL LIGHT ANSWERED, IV PUMP ALARMING. NEW BAG IV FLUIDS HUNG AND INFUSING DIRECTED, IV SITE WNL. FLUSHES EASILY, pt DENIES PAIN AT PAIN. PRN PAIN MEDICAITON ALSO GIVEN FOR REPORTED 10/10 PAIN. pt REPEATS SELF OFTEN D/T TBI AND IS VERY SARCASTIC AT TIMES. ASSESSMENT COMPLETE, NO ACUTE CHANGES. SCD'S REMAIN ON AND CALL LIGHT IN REACH. pt STATES, "I HAD A GREAT NAP EARLIER TODAY, THE BEST NAP I'VE HAD IN DAYS. I'LL PROBABLY BE AWAKE ALL NIGHT". pt ENCOURAGED TO TURN OFF LIGHTS/TV AND REST. AFTER LEAVING ROOM, THIS RN HEARD THE pt STATE FROM HALLWAY "FUCKING DOOR, JUST SLAM IT AGAIN". pt EDUCATED THAT STAFF ARE SHUTTING DOOR GENTLY POSSIBLY, PRESSURE IS D/T ROOM BEING A NEGATIVE PRESSURE ROOM. pt THEN BECOMES REPEATIVLY APOLOGETIC AND STATES, "OH OKAY, I'M SORRY...I'M SORRY".
--- NOTE | 2021-07-10 02:15 | NUR ---
CALL LIGHT ANSWERED, pt WANTING HELP GATHERING SUPPLIES TO BRUSH HIS TEETH. ASSISTANCE PROVIDED, pt STATES, "I HAD A REALLY GOOD NAP TODAY, I PROBABLY WON'T SLEEP AT ALL, WON'T SLEEP AT ALL". NO FURTHER NEEDS, CALL LIGHT IN REACH.
--- NOTE | 2021-07-10 03:20 | NUR ---
CALL LIGHT ANSWERED, WARM BLANKET PROVIDED. NO FURTHER NEEDS.
--- NOTE | 2021-07-10 05:10 | NUR ---
ROUNDED ON pt, pt RESTING IN BED ON RA, RR EVEN AND UNLABORED. NO DISTRESS NOTED, CPOX REMAINS IN PLACE WITH SPO2 IN LOW 90'S. WILL CONTINUE TO MONITOR. CALL LIGHT IN REACH.
--- NOTE | 2021-07-10 06:40 | NUR ---
PRN PAIN MEDICATION GIVEN FOR REPORTED 10/10 PAIN, SCHEDULED IV ABX ALSO INFUSING DIRECTED. IV SITE WNL. CALL LIGHT IN REACH.
--- NOTE | 2021-07-10 07:10 | NUR ---
LATE ENTRY: pt REPORTS GAS PAIN OCCAS DURING SHIFT, REQUESTING "TUMS" OR SOME TYPE OF MEDICATION FOR GAS PAIN. IV PAIN MEDICATION GIVEN PRN FOR ABD PAIN (SEE EMAR). DR MCKEON MADE AWARE, NO NEW ORDERS RECEIVED AT THIS TIME.
--- NOTE | 2021-07-10 09:32 | NUR ---
PT CBG 100, ON FULL LIQUID DIET NOW. ATE 100%. ON RESP ISOLATION. LUNGS W CRACKLES. MOIST NON PRODUCTIVE COUGH PRESENT. ANB SOFT ESTELLE MIDLINE INCISION WITH MOIST RED CENTER, TONIO IN PLACE. l ABD tt IN PLACE, amaury ON r SIDE SCANT AMOUNT ODF SS DRAINAGE. F/C IN PLACE, PATENT. PT AWEARE THAT F/C IS TO BE DC'D, STATED UNDERSTANDING AND STASTED THAT HE DOES NOT WANT IT OUT. WILL CONT TO ENCOURAGE TO BE OK W DC'G F/C. SCDS IN PLACE, PT HELPED WITH REPOSITIONING. TON GRAVES AST BEDSIDE,
--- NOTE | 2021-07-10 10:45 | NUR ---
PATIENT RESTING IN THE BED. RN ELADIA GOING IN ROOM TO DO MEDS. CALL LIGHT WITH IN REACH.
--- NOTE | 2021-07-10 10:50 | NUR ---
RESTING, EYES CLOSED, NO DISTRESS, ONR OOM AIR, CALL LIGHT AND LFUIDS AT BEDSIDE. CONT ON RESP ISOLATION PRECAUTIONS
--- NOTE | 2021-07-10 11:52 | NUR ---
eyes closed, no distress, on room air, call light and fluids at bedside
--- NOTE | 2021-07-10 12:54 | NUR ---
99.8 TEMP, C/O 10/10 ABD PAIN, PASSING GAS, MEDICATED WITH TYLENOL 1000MG AND OXYCODONE 10MG. PT HELPED REPOSITIONING IN BED. CBG 124, NO COVEREAGE, F/C DCD AT 1240. URINAL AT HANDS REACH. PT COOPERATIVE
--- NOTE | 2021-07-10 14:45 | NUR ---
on room air, lungs with crackles bilat, cleared with cough. dim at bases, abd distended keaton, tender, abd incision with hawk no changes GT and JJP with scant amount of drainage. stated passing gas. was medciated earlier, temp 98.9 o, using IS. encouraged to do do more self carte. helped with repositioned very good, SCDS inplace, IVF infusing w/o problems. tolerating full liquid diet. Continues on resp isolation precautions CPOX inplace 92%. no void since f/c dc'd at 1240, urinal at hands reach.
--- NOTE | 2021-07-10 15:55 | NUR ---
PT CONTINUES ON RESP ISOLATION PRECAUTIONS. ON ROOM AIR, LUNGS INITIALLY WITH EXP WHEEZING AND DIM AT BASES, CLEARED WITH COUGH, MOIST NON PROD COUGH PRESENT. USING IS. AT SECOND ASSESSMENT, LUNGS WITH CRACKLES AND DIM AT BASES, DID NOT CLEARED WITH COUGH TIL LATER, JUST DIM AT BASES, HAS BEEN USING IS AND CDB ENCOURAGED. MIDLINE ABD INCISION WITH TONIO INPLACE, WELL ARRPOXIMATED PINK EDGES EXCEPT AT MID INCISION ABOUT 3-4 STAPLED AREA MOIST CENTER SCANT AMOUNT OF SS DRAINAGE, RED EDGES, ABD TENDER, ESTELLE, DISTENDED, PASSING GAS, NO BM. WAS MEDICATED WITH OXYCODONE AND TYLENOL PER ABD PAIN AND TEMP OF 99.8 ORAL. EFFECTIVE, TEMP 98.9 AFTER A FEW HOURS, USING IS AND CDB. TOLERATING WELL. F/C WAS DC'D AT 1240, HAS NOT VOIDED YET, WILL BLADDER SCAN IF NO VOID BY [phone], PT AWARE. SCDS IN PLACE. PT HELPED WITH REPOSITIONING IVF INFUSING W/O PROBLEMS, HAS TOLERATED FULL LIQUIDS WELL, NO EMESIS. HAS FOLLOWED INSTRUCTIONS, HYPERVERBAL BUT NO INAPPROPRIATE TALK. ALERT TO SELF AND SITUATION BUT NOT DATE. CALL LIGHT AND FLUIDS AT BEDSIDE. PT ENCOURAGED TO DO MORE SELF CARE, PT WORKING WITH PT
--- NOTE | 2021-07-10 17:17 | NUR ---
NO VOID YET, WILL BLADDER SCAN. CBG 84, JUICE, MILK GIVEN, AND ICE CREAM, AYMPTOMATIC
--- NOTE | 2021-07-10 19:20 | NUR ---
SHIFT REPORT RECEIVED FROM DAYSHIFT EVELYN MONTILLA. pt RESTING QUIETLY IN BED WITH EYES CLOSED, RR EVEN AND UNLABORED. CPOX IN PLACE, SPO2 LOW 90'S. pt AWOKE TO VOICE, IV PUMP ALARMING. EVELYN MONTILLA GOING IN ROOM TO HANG NEW BAG IV FLUIDS. CALL LIGHT IN REACH.
--- NOTE | 2021-07-10 19:33 | NUR ---
PT VOIDED 300CC MORE URINE. USING URINAL, NO C/O ABD PAIN AT THIS TIME. IVF INFUSING, NO C/O ADVERSE REACTION TO ABX
--- NOTE | 2021-07-10 22:14 | NUR ---
ASSESSMENT COMPLETE, SCHEDULED MEDICATIONS AND PRN PAIN MEDICATION GIVEN (SEE EMAR). pt DID NOT RATE PAIN AT TIME OF ASSESSMENT, FACIAL GRIMACING NOTED. pt REMAINS FORGETFUL D/T HX TBI, BUT CALLS APPROPRIATELY FROM ROOM VIA CALL LIGHT. VSS, I&O'S COMPLETE. IV SITE WNL, FLUSHES EASILY. pt DENIES PAIN WHEN FLUSHED. IV FLUIDS AND IV ABX INFUSING DIRECTED. ABD INCISION REMAINS WELL APPROXIMATED, TONIO NOTED. BOWEL TONES ACTIVE, G-TUBE REMAINS CLAMPED, GAUZE C/D/I. pt UP TO AMBULATE IN ROOM, SBA WITH FWW. pt VERY SLOW MOVING AND GETS DISTRACTED VERY EASILY. SCATTERED WHEEZES NOTED, RT ABENA ALSO IN ROOM FOR PRN BREATHING TREATMENT. pt DEMONSTRATED USE OF IS, SCD'S BACK IN PLACE AFTER pt BACK IN BED. FRESH ICE WATER PROVIDED AND CALL LIGHT IN REACH. pt DENEIS NAUSEA. NO FURTHER NEEDS, WILL MONITOR.
--- NOTE | 2021-07-10 23:00 | NUR ---
PATIENT CALLED. URINAL EMPTIED. CHANGED TELE BATTERY. ROOM LIGHTS OFF.
--- NOTE | 2021-07-11 00:12 | NUR ---
PATIENT CALLED. WARM BLANKET PROVIDED.
--- NOTE | 2021-07-11 00:17 | NUR ---
ROUNDED ON pt, pt AWAKE AND RESTING IN BED. ARMEN LUNA IN ROOM ASSISTING pt. NO NEEDS OR CONCERNS VERBALIZED AT THIS TIME. pt REMAINS ON CPOX, ON RA. RR EVEN AND UNLABORED. SPO2 WNL. NO DISTRESS NOTED.
--- NOTE | 2021-07-11 01:32 | NUR ---
call light answered, iv pump alarming. issue resolved, low battery. pumps plugged into wall. iv site wnl. g-tube flushed with approx 40mls tap water and reclamped. pt denies nausea. urinal emptied for 100mls, call light in reach.
--- NOTE | 2021-07-11 03:32 | NUR ---
ROUNDING ON pt, pt AWAKE AND RESTING IN BED USING URINAL. SPO2 93-94% ON RA. NO NEEDS OR CONCERNS VERBALIZED. WILL CONTINUE TO MONITOR.
--- NOTE | 2021-07-11 04:29 | NUR ---
CALL LIGHT ANSWERED, pt ASKING FOR WARM MILK "TO HELP ME SLEEP". pt EDUCATED ON HX OF DIABETES AND BLOOD SUGAR CONTROL. IV SITE PETER. ARMEN LUNA GOING TO ROOM TO ASSIST WITH EMTPYING URINALS PER pt REQUEST.
--- NOTE | 2021-07-11 04:40 | NUR ---
pt BLADDER SCANNED WITH RESULT OF 155MLS, VOIDING VIA URINAL. pt HAS HX OF URINARY RETENTION POST-OP, NO S/X OF RETENTION NOTED. pt VOIDING WNL VIA URINAL.
--- NOTE | 2021-07-11 04:46 | NUR ---
PATIENT CALLED TO EMPTY 2 URINAL. 1 HAS ONLY 25ML, THE OTHER ONE HAS 100ML. BLADDER SCANNED PER PRIMARY RN DEBBIE AND IT SHOWED 155ML. PRIMARY RN NOTIFIED.
--- NOTE | 2021-07-11 06:30 | NUR ---
SCHEDULED IV ABX INFUSING DIRECTED, IV SITE WNL. ASSESSMENT COMPLETE, NO ACUTE CHANGES. pt HAS WET GOWN FROM URINAL SPILLING ON SELF, BED CHANGE COMPLETE, JOHN CARE DONE AND NEW GOWN IN PLACE. VSS AND I&O'S COMPLETE. pt DROWSY, AWOKE TO VOICE. WARM BLANKETS PROVIDED. CALL LIGHT IN REACH.
--- NOTE | 2021-07-11 07:00 | NUR ---
pt HAS NOT HAD A BM SINCE ADMITTED TO HOSPITAL PER I&O'S CHART, DR MCKEON MADE AWARE. pt ALREADY ON SCHEDULED BOWEL MEDS, RECENTLY STARTTED. NO NEW ORDERS RECEIVED AT THIS TIME.
--- NOTE | 2021-07-11 08:18 | NUR ---
PT REFUSED TO GET OOB FOR MEAL, FEELING COLD THIS AM PROVIDED WARM BLANKETS AND TURNED ON THE HEAT, CALL LIGHT WITHIN REACH NO FURTHER ASSITANCE NEEDED AT THIS TIME.
--- NOTE | 2021-07-11 08:40 | NUR ---
Report received from Tatiana RIVAS. Pt is sleeping in bed. SCDs on. LR at 50 ml/hr. BG was 96 this am. Pt stated he didn't sleep all night. SAHARA drain in place - no output noted. G-tube flushed per order. Abdominal incision BOBBIN WINDER TENDER, healing well.
--- NOTE | 2021-07-11 11:45 | NUR ---
Spoke with pt, states he is feeling better this week. Wants to go home. Plan cont. to go home to his apartment with assist from mom.
--- NOTE | 2021-07-11 13:38 | NUR ---
Pt reports no improvement after Oxycodone. Motrin given. Pt was also given sugar free sorbet. Pt transfered from recliner to bed with SBA and FWW. SCDs reapplied.
--- NOTE | 2021-07-11 19:20 | NUR ---
awake, on room air cpox tele in place, sats 92%. no c/o pain at thist mariola, continues on resp isolation precautions
--- NOTE | 2021-07-11 21:50 | NUR ---
Pt on room air, continues on Respiratory Isolation Precautions, lungs dim at bases, abd distended, tender, stated passing gas, keaton, midline abd incision with hawk in place. edges well approximated, pink except at center, slightly red colored, c/o abd pain, medicated with tylenol and oxycodone. GT L abd flushed easily, SAHARA with scant amounts of serous drainage. using urinal, voiding small amount frequently. yellow urine. SCDS in place, trace edema at ankles, elevated, IVF infusing RH patent. Pt helped with repositioning in bed. Cooperative tolerating liquids well, no c/o emesis, CBG 100. call light and fluids at bedside
--- NOTE | 2021-07-12 00:06 | NUR ---
RESTING, NO DISTRESS, ON ROOM AIR, IVF INFUSING W/O PROBLEMS, CALL LIGHT AT HANDSA REACH
--- NOTE | 2021-07-12 01:35 | NUR ---
answewred call light. emptied urinal. patient denies any needs at this time.
--- NOTE | 2021-07-12 02:17 | NUR ---
pt awake, medicated with motrin 600mg po c/o abd pain. coop with assessment. On room air, exp wheezing and dim at bases moist non produc cough present. midline abd incision with ss no changes from earlier, abd distended, staed passing gas, GT and SAHARA in place, no changes. scds in place, voiding small amounts of yellow urine. tolerating liquids well, no emesis, helped with turning and repositioning
--- NOTE | 2021-07-12 04:00 | NUR ---
CPOX/TELE#[address] SATS 96% TARAS AT 51BPM. EYES CLOSED, NO DISTRESS, IVF INFUSING, CALL LIGHT AND FLUIDS AT BEDSIDE
--- NOTE | 2021-07-12 06:43 | NUR ---
Pt on room air, lungs dim with crackles at this time. moist nonproductiv cough. dr fong in room, IVF dc'd RJP dc'd by , 2x2 in [address],. procedure explained, pt cooperative. tolerated well, medicated with tylenol 1000mg and oxycodoen 5mg po. using urinal, voiding qs. uses call light. helped with repositioning
--- NOTE | 2021-07-12 07:41 | NUR ---
Report received from Cat RIVAS. Pt is sleeping in bed. Cefepime infusing.
--- NOTE | 2021-07-12 08:20 | NUR ---
PT UP IN CHAIR FOR MEAL, LINENS CHANGED CALL LIGHT WITHIN REACH, NO FURTHER ASSISTANCE NEEDED AT THIS TIME.
--- NOTE | 2021-07-12 10:10 | NUR ---
I was able to visit with Mr. Diaz today regarding his perception of his care while here in the hospital. Upon entering the room Mr. Diaz is up in his chair, he is awake and alert, and he answers questions appropriately. Mr. Diaz feels that his "care has been excellent" adding "everyone has been really nice." Mr Diaz also denies any complaints regarding his care while here in the hospital. When asked how he was doing he exclaimed "I am doing great, I get to go home tomorow." Mr. Diaz is alert and oriented to person, place, and time, he denies questions or concerns at this time.
--- NOTE | 2021-07-12 11:45 | NUR ---
BG within normal limits. Pt is resting in a recliner. Asks to take a shower.
--- NOTE | 2021-07-12 12:53 | NUR ---
Pt is getting ready to take a shower. IV site wrapped. Pt will use shower chair. Pt has been doing pretty well pain aquino today. He is eager to go home tomorrow.
--- NOTE | 2021-07-12 14:15 | NUR ---
Pt worked with PT. Pt was SBA with FWW for transfers. As per therapist Pt will be ready to discharge tomorrow.
--- NOTE | 2021-07-12 15:20 | NUR ---
Spoke with Ney, he is wanting to go home tomorrow. He denies needs and states his mom will assist him. Let him know I have been attempting to call his mom and he states, "she never answers her F ing phone." He is unsure if she will give him a ride. I attempted to call her again today and leave a message, voice mail is full. Will try again tomorrow.
--- NOTE | 2021-07-12 16:14 | NUR ---
Pt's Mother wanted an update on her son. She was particularly interested in latest progress note by Dr Rosas. She just spoke with Pt and wanted to confirm tomorrow's discharge. All above information was relayed to Pt's Mother. She was encouraged to call tomorrow around 11 am to find out what time discharge will take place.
--- NOTE | 2021-07-12 16:22 | NUR ---
Dr Rosas was called to address no BM since before surgery. As per physician Pt doesn't necessarily have to move his bowels before discharge, as his bowels may not be 'receptive' to laxatives. Pt will discharge home with an order for Dulcolax supp and Miralax.
--- NOTE | 2021-07-12 17:00 | NUR ---
Pt's BG was 73. Pt did report feeling hungry, but no other symptoms. 2 apple juices given. Pt is eating dinner now.
--- NOTE | 2021-07-12 19:17 | NUR ---
RECEIVED REPORT IN [facility] D/T COVID STATUS. PT IS AWAKE IN BED.
--- NOTE | 2021-07-12 20:31 | NUR ---
PT'S IV WAS BEEPING, PT UPSET THAT IT KEEPS BEEPING "ALL THE TIME" AND THAT IT "IS DRIVING HIM CRAZY" PT IS NOW SL. PT CONTINUED TO COMPLAIN, REDIRECTED CONVERSATION NOW PT IS NOW LONGER TALKING ABOUT IT. PT REPORTS PAIN 10/10 IN HIS ABD, BUT NOT GRIMACING OR REPORTING ANY CHANGES OF SX. DIFFICULT TO AUSCULATATE PT HE CONTINUES TO TALK WHEN TRYING TO ASSESS. PT REFUSED HEPARIN AND HAS SCDS ON. HE ALLOWED A BLOOD SUGAR CHECK. VS TAKEN AND PT DENIES FURTHER NEEDS. CALL LIGHT IS CLOSE.
--- NOTE | 2021-07-12 23:21 | NUR ---
IN ROOM TO ADMINISTER IV ABX, PT AWAKE IN BED AND DENIES NEEDS. CALL LIGHT IS CLOSE.IV IS INFUSING FINE. PT INSTRUCTED TO CALL IF IV IS BEEPING WE CANNOT HEAR IT AT RN STATION. PT AGREES, CALL LIGHT IS CLOSE.
--- NOTE | 2021-07-12 23:25 | NUR ---
IN ROOM TO ADMINISTER IV ABX, PT NOT ABLE TO SLEEP. PROVDIED NO SUGAR HOT GUERA PER HIS REQUEST. HE DENIES FURTHER NEEDS. CALL LIGHT IS CLOSE.
--- NOTE | 2021-07-13 06:46 | NUR ---
[facility] [phone]. SEE PAPER CHART.
--- NOTE | 2021-07-13 07:31 | NUR ---
Report received from Latricia RIVAS. Dr Rosas saw Pt this am. Pt will be discharging home today. G tube is to remain in place. Pt is sleeping in bed at the moment.
[2021-07-13] MEDS ORDERED: AMOX TR-K CLV1 EAC1 PO (07:36)
[2021-07-13] MEDS ORDERED: OXYCODONE HCL10 MG PO (07:38)
[2021-07-13] MEDS ORDERED: TYLENOL325 MG PO (07:39)
[2021-07-13] MEDS ORDERED: ADVIL200 MG PO (07:40)
[2021-07-13] MEDS ORDERED: LAXATIVE5 M1 PO (07:40)
[2021-07-13] MEDS ORDERED: MIRALAX17 GM PO (07:41)
[2021-07-13] MEDS ORDERED: MAGNESIUM CITR296 ML PO (07:42)
--- NOTE | 2021-07-13 08:12 | NUR ---
pt refused to get up to chair for meal wants to eat in bed, feeling tired
--- NOTE | 2021-07-13 09:20 | NUR ---
Pt discharged home with Mom as caregiver. IV discontinued. Per pharmacist Pt does not need Flagyl infusion this am. He'll get his dose of oral antibiotic tonight.Discharge instructions given to Mother and included G-tube care, drain site wound care, activity, follow-up appointment with Dr Crowe, diet and hygiene.IV discontinued. Pt was transported to the car via wheelchair.
== END 2021-07-13 09:15 | disposition home or self-care (01) | DRG 338 ==
LOC: ED 12:39 → MS 18:15
PROVIDERS: ADMIT Surgery; ATTEND Surgery
PROC: 0DTJ0ZZ Resection of Appendix, Open Approach (ICD-10-PCS; 2021-07-04)
PROC: 0F900ZZ Drainage of Liver, Open Approach (ICD-10-PCS; 2021-07-04)
PROC: 0DH60UZ Insertion of Feeding Device into Stomach, Open Approach (ICD-10-PCS; 2021-07-04)
PROC: 8E0ZXY6 Isolation (ICD-10-PCS; principal; 2021-07-04 19:00)
DX: K35.21 Acute appendicitis with generalized peritonitis, with abscess (principal); U07.1 COVID-19; K75.0 Abscess of liver; E11.9 Type 2 diabetes mellitus without complications; E78.5 Hyperlipidemia, unspecified; I10 Essential (primary) hypertension; F17.210 Nicotine dependence, cigarettes, uncomplicated; Z98.2 Presence of cerebrospinal fluid drainage device; Z87.820 Personal history of traumatic brain injury; Z98.890 Other specified postprocedural states; Z79.84 Long term (current) use of oral hypoglycemic drugs; Z79.899 Other long term (current) drug therapy
CPT/HCPCS: 00840; 36415; 64488; 71045; 74177; 76942; 80048; 80053; 81001; 83036; 83605; 83690; 83735; 84100; 85025; 87040; 87070; 87075; 87205; 87502; 88300; 88302; 88304; 88305; 88307; 88311; 94640; 94762; 96366; 96375; 96376; 97161; 99285-25; A9270; J0692; J1100; J1170; J1644; J1815; J1885; J2001; J2185; J2270; J2405; J2704; J2795; J3010; J7030; J7121; Q9967; U0003

== ENCOUNTER 2022-02-17 19:43 | Emergency (ER) | payer MEDICARE, OTHER ==
[~2022-02-17] VITALS: Ht 175.3 cm; Wt 88.5 kg
[~2022-02-17 19:43] MED LIST: ADVIL200 MG PO; AMOX TR-K CLV1 EAC1 PO; FENOFIBRATE145 MG PO; JANUVIA100 MG PO; LAXATIVE5 M1 PO; LISINOPRIL10 MG PO; MAGNESIUM CITR296 ML PO; METFORMIN HCL500 M1 PO; MIRALAX17 GM PO; OXYCODONE HCL10 MG PO; ROSUVASTATIN CA40 MG PO; TYLENOL325 MG PO
[2022-02-17] MEDS ORDERED: ATIVAN1 MG PO (21:23)
[2022-02-17] MEDS ORDERED: KEPPRA500 MG PO (21:23)
== END 2022-02-17 23:56 | disposition home or self-care (01) ==
LOC: ED 19:43
DX: R56.9 Unspecified convulsions (principal); I10 Essential (primary) hypertension; Z79.899 Other long term (current) drug therapy
CPT/HCPCS: 36415; 70450; 80053; 81003; 85025; 87502; 96374; 99284-25; C9803; J1953; J7121; U0003